=== PATIENT | female | born 1955 | race African-American/Black ===

== ENCOUNTER 2017-03-03 10:33 | Emergency (ER) | payer BC ==
[~2017-03-03] VITALS: Ht 170.2 cm; Wt 100.0 kg
[~2017-03-03 10:33] MED LIST: ASPIRIN325 MG OR; BENADRYL 50MG C50 MG OR; MECLIZINE25 MG OR; MEDROL4 M1 OR; NO HOME MEDS
[2017-03-03] MEDS ORDERED: AMLODIPINE5 MG PO (10:56)
[2017-03-03] MEDS ORDERED: OMEPRAZOLE10 MG PO (10:56)
[2017-03-03] MEDS ORDERED: ATORVASTATIN CA80 MG PO (10:57)
[2017-03-03] MEDS ORDERED: CHILD ASA LS81 MG PO (10:57)
[2017-03-03] MEDS ORDERED: ALENDRONATE70 MG PO (11:00)
[2017-03-03 11:15] LABS: HEMATOCRIT 40.1 % (37.0-47.0); HEMOGLOBIN 13.4 g/dl (12.0-16.0); MEAN CELL VOLUME 90.1 fL CALC (80.0-100.0); MEAN CORPUSCULAR HGB 30.1 pG CALC (26.0-32.0); MEAN CORPUSCULAR HGB CONC 33.4 g/L CALC (32.0-36.0); NEUT# 2.11 thou/uL (2.00-7.15); RED BLOOD COUNT 4.45 mill/uL (4.20-5.60); RED CELL DISTRI WIDTH 15.2 % (11.5-15.5)
[2017-03-03 11:35] LABS: ALBUMIN 4.5 g/dL (3.2-5.0); ALKALINE PHOSPHATASE 115 u/l (38-126); ANION GAP 14 (6-22 (CALC)); BILIRUBIN, TOTAL 1.2 mg/dL (0.0-1.4); BUN 11 mg/dL (8-23); BUN/CREATININE RATIO 13 (12-20 (CALC)); CALCIUM 9.6 mg/dL (8.4-10.2); CARBON DIOXIDE 28 mmol/l (22-30); CHLORIDE 105 mmol/l (95-108); CREATININE 0.8 mg/dL (0.5-1.0); GFR > 60 ML/MIN (>=60 (CALC)); GFR FOR AFR.AMER. > 60 ML/MIN (>=60 (CALC)); GLUCOSE 103 mg/dL (82-115); POTASSIUM 4.2 mmol/l (3.5-5.1); SGOT/AST 62 u/l (9-36); SGPT/ALT 117 u/l (11-66); SODIUM 142 mmol/l (137-146); TOTAL PROTEIN 7.9 g/dL (6.3-8.2)
[2017-03-03 11:47] LABS: MYOGLOBIN 42 ng/mL (0 - 62)
[2017-03-03] MEDS ORDERED: ANTIVERT PO (12:42)
[2017-03-03] MEDS ORDERED: ZOFRAN ODT4 MG PO (12:42)
[2017-03-03 12:48] LABS: URINE BILIRUBIN - DIPSTICK NEGATIVE (NEGATIVE); URINE BLOOD DIPSTICK NEGATIVE (NEGATIVE); URINE CLARITY CLEAR; URINE COLOR YELLOW; URINE GLUCOSE - DIPSTICK NEGATIVE (NEGATIVE); URINE KETONE NEGATIVE (NEGATIVE); URINE LEUK ESTERASE NEGATIVE (NEGATIVE); URINE NITRITE - DIPSTICK NEGATIVE (Negative); URINE PROTEIN - DIPSTICK NEGATIVE (NEG-TRACE); URINE UROBILINOGEN - DIPSTICK 0.2 E.U./dL (0.2)
[2017-03-03 13:18] VITALS: BP 161/71
== END 2017-03-03 13:25 | disposition home or self-care (01) | DRG 149 ==
LOC: ED 10:33
PROVIDERS: Emergency Medicine
DX: R42 Dizziness and giddiness (principal); I10 Essential (primary) hypertension; E78.5 Hyperlipidemia, unspecified; Z86.73 Personal history of transient ischemic attack (TIA), and cerebral infarction without residual deficits

== ENCOUNTER 2019-04-24 06:53 | Day surgery (SDC) | payer MEDICARE, OTHER ==
[~2019-04-24] VITALS: Ht 170.2 cm; Wt 103.9 kg
[~2019-04-24 06:53] MED LIST changes: +ALENDRONATE70 MG PO; +AMLODIPINE BESY10 MG PO; +AMLODIPINE5 MG PO; +ANTIVERT PO; +ASPIRIN325 MG PO; +ATORVASTATIN CA80 MG PO; +FIORICET/CODEIN1 CAP PO; +FLOVENT DI50 MCG/BLI; +FOSAMAX PLUS PO; +LIPITOR80 M1 PO; +OMEPRAZOLE10 MG PO; +VITAMIN D22000 UNIT PO; +VITAMIN D32000 UNIT PO; +ZOFRAN ODT4 MG PO; +ZYRTEC10 MG PO
[2019-04-24 08:49] VITALS: BP 136/63
== END 2019-04-24 09:05 | disposition home or self-care (01) ==
LOC: ORM 06:53
PROVIDERS: ATTEND Surgery
PROC: 0DJD8ZZ Inspection of Lower Intestinal Tract, Via Natural or Artificial Opening Endoscopic (ICD-10-PCS; principal; 2019-04-24)
DX: Z12.11 Encounter for screening for malignant neoplasm of colon (principal); I10 Essential (primary) hypertension; Z86.010 Personal history of colon polyps